=== PATIENT | female | born 1985 | race African-American/Black ===

== ENCOUNTER 2018-03-01 09:57 | Emergency (ER) | payer SELFPAY ==
[~2018-03-01] VITALS: Ht 157.5 cm; Wt 52.2 kg
[2018-03-01 10:15] VITALS: BP 116/71
[2018-03-01] MEDS ORDERED: NAPROXEN 500 MG TABLET PO STA (10:29)
[2018-03-01] MEDS ORDERED: HYDROcodone/APAP 5/325MG 1 TAB TABLET PO ONE (10:30)
[2018-03-01] MEDS ORDERED: AMOXICILLIN 250 MG CAPSULE. PO ONE (10:30)
[2018-03-01] MEDS ORDERED: TRAM-48 PO (10:40)
[2018-03-01] MEDS ORDERED: AMOX875T PO (10:40)
--- NOTE | 2018-03-01 10:40 | PHYS DOC ---
Past Medical History Past Medical History: No Pertinent History Past Surgical History: No Surgical History Alcohol Use: None Drug Use: None Adult General Chief Complaint Chief Complaint: DENTAL PROBLEM HPI HPI Patient is a 32 year old female with no significant medical history who presents today complaining of moderate left lower gum dental pain for one week and a dental abscess that began today. She states this morning she noted swelling on her left lower gum. Patient denies any fever or trismus. She states she has a dentist but she cannot be seen until the middle of next week. She states she's been trying [id number] medications including ibuprofen with minimal relief. Review of Systems Review of Systems Constitutional: Denies fever or chills [] Eyes: Denies change in visual acuity, redness, or eye pain [] HENT: Reports dental pain and abscess. Denies nasal congestion or sore throat [] Musculoskeletal: Denies back pain or joint pain [] Integument: Denies rash or skin lesions [] Neurologic: Denies headache, focal weakness or sensory changes [] All other systems were reviewed and found to be within normal limits, except as documented in this note. Current Medications Current Medications Current Medications Medications (Trade) Dose Ordered Sig/Yolanda Start Time Stop Time Status Last Admin Dose Admin Acetaminophen/ Hydrocodone Bitart (Lortab 5/325) 1 tab 1X ONCE 03/01/18 10:30 03/01/18 10:34 DC 03/01/18 10:51 1 TAB Amoxicillin (Amoxil) 500 mg 1X ONCE 03/01/18 10:30 03/01/18 10:34 DC 03/01/18 10:50 500 MG Naproxen (Naprosyn) 500 mg 1X STAT 03/01/18 10:29 03/01/18 10:34 DC 03/01/18 10:51 500 MG Allergies Allergies Allergies Coded Allergies Type Severity Reaction Last Updated Verified clindamycin Allergy Intermediate hives 01/17/15 Yes metronidazole Allergy Intermediate Rash 01/17/15 Yes Physical Exam Physical Exam Constitutional: Well developed, well nourished, no acute distress, non-toxic appearance. [] HENT: Normocephalic, atraumatic, bilateral external ears normal, oropharynx moist, no oral exudates, nose normal. Swelling noted on the left lower cheek consistent with a dental abscess. Tooth #17 through 20 are decayed and broken, gum erythema noted, no isolated abscess on the exterior gum noted. Skin: Warm, dry, no erythema, no rash. [] Back: No tenderness, no CVA tenderness. [] Extremities: No tenderness, no cyanosis, no clubbing, ROM intact, no edema. [] Neurologic: Alert and oriented X 3, normal motor function, normal sensory function, no focal deficits noted. [] Psychologic: Affect normal, judgement normal, mood normal. [] Current Patient Data Vital Signs Vital Signs Date Time Temp Pulse Resp B/P (MAP) Pulse Ox O2 Delivery O2 Flow Rate FiO2 03/01/18 10:15 99.2 87 18 116/71 (86) 97 Room Air 99.2 EKG EKG [] Radiology/Procedures Radiology/Procedures [] Course & Med Decision Making Course & Med Decision Making Pertinent Labs and Imaging studies reviewed. (See chart for details) This is a 32-year-old female patient presented to the ED today with a dental abscess. She has a dentist and will follow-up in the course of next week. Will be discharged with amoxicillin and tramadol for pain. Staff Physician Addendum: I was working in the ER during the course of this patient's visit. I was available for consultation as needed, but I was not directly involved in the care of this patient. Dragon Disclaimer Dragon Disclaimer This electronic medical record was generated, in whole or in part, using a voice recognition dictation system. Departure Departure Impression: Primary Impression: Abscess, dental Additional Impression: Dentalgia Disposition: 01 HOME, SELF-CARE Condition: STABLE Referrals: UNKNOWN PCP NAME (PCP) Follow-up with your dentist as soon as you can Patient Instructions: Dental Abscess Additional Instructions: You were evaluated in the emergency room for a dental abscess. Follow-up with your dentist as soon as you can, complete your antibiotics. Take the pain medicine as needed. Scripts Tramadol Hcl (ULTRAM) 50 Mg Tablet 50 MG PO Q6HRS PRN for PAIN, #20 TAB 0 Refills Prov: DONNIE ESPINO APRN 03/01/18 Amoxicillin (AMOXICILLIN) 875 Mg Tablet 1 TAB PO BID, #20 TAB Prov: DONNIE ESPINO BRACER 03/01/18 Problem Qualifiers DONNIE ESPINO APRN Mar 01, 2018 10:40 WILLY BORGES MD Mar 01, 2018 11:42
== END 2018-03-01 10:56 | disposition home or self-care (01) ==
LOC: ER 09:57
DX: K04.7 Periapical abscess without sinus (principal); Z88.1 Allergy status to other antibiotic agents; Z88.8 Allergy status to other drugs, medicaments and biological substances
CPT/HCPCS: 99284

== ENCOUNTER 2019-07-29 20:45 | Emergency (ER) | payer SELFPAY ==
[~2019-07-29] VITALS: Ht 157.5 cm; Wt 51.4 kg
[~2019-07-29 20:45] MED LIST: AMOX875T PO; TRAM-48 PO
[2019-07-29] MEDS ORDERED: METOCLOPRAMIDE HCL 10 MG/2 ML VIAL. IVP ONE (21:15)
[2019-07-29] MEDS ORDERED: FAMOTIDINE 20 MG/2 ML VIAL IVP ONE (21:15)
[2019-07-29 21:24] LABS: BILIRUBIN,URINE NEGATIVE (NEG); CLARITY,URINE CLEAR; COLOR,URINE YELLOW; NITRITE,URINE NEGATIVE (NEG); PH,URINE 7.5 (<5.0-8.0); PROTEIN,URINE 100 mg/dL (NEG-TRACE)
[2019-07-29 21:31] LABS: SQUAMOUS EPITHELIAL CELL,UR MOD /LPF
[2019-07-29 21:32] LABS: BACTERIA,URINE FEW /HPF (0-FEW); RBC,URINE RARE /HPF (0-2)
[2019-07-29 21:40] LABS: BASO % 0 % (0-3); EOS % 0 % (0-3); HEMATOCRIT 38.1 % (36.0-47.0); HEMOGLOBIN 12.9 g/dL (12.0-15.5); LYMPH # 1.2 x10^3/uL (1.0-4.8); LYMPH % 12 % (24-48); MEAN CORPUSCULAR HEMOGLOBIN 32 pg (25-35); MEAN CORPUSCULAR HGB CONC 34 g/dL (31-37); MEAN CORPUSCULAR VOLUME 94 fL (79-100); MONO # 0.2 x10^3/uL (0.0-1.1); MONO % 2 % (0-9); NEUT % 86 % (31-73); PLATELET COUNT 251 x10^3/uL (140-400); RED BLOOD COUNT 4.05 x10^6/uL (3.50-5.40); RED CELL DISTRIBUTION WIDTH 13.8 % (11.5-14.5); WHITE BLOOD COUNT 10.5 x10^3/uL (4.0-11.0)
[2019-07-29 21:49] LABS: CALCIUM 8.8 mg/dL (8.5-10.1); CREATININE 0.6 mg/dL (0.6-1.0); GFR 137.7
[2019-07-29 21:52] LABS: POTASSIUM 4.4 mmol/L (3.5-5.1)
[2019-07-29 21:55] LABS: ALBUMIN/GLOBULIN RATIO 0.9 (1.0-1.7); MAGNESIUM 1.9 mg/dL (1.8-2.4); TOTAL BILIRUBIN 0.6 mg/dL (0.2-1.0); TOTAL PROTEIN 8.3 g/dL (6.4-8.2)
[2019-07-29 21:59] LABS: % LYMPHS 13 % (24-48); % SEGS 87 % (35-66); PLT ESTIMATE ADEQUATE (ADEQUATE)
[2019-07-29] MEDS ORDERED: HALOPERIDOL LACTATE 5 MG/ML VIAL. IVP ONE (22:15)
[2019-07-29] MEDS ORDERED: cefTRIAXone IV Push 1 GM VIAL. IVP ONE (22:15)
[2019-07-29 23:36] VITALS: BP 118/66
--- NOTE | 2019-07-30 00:01 | PHYS DOC ---
Past Medical History Past Medical History: No Pertinent History Past Surgical History: No Surgical History Smoking Status: Current Every Day Smoker Alcohol Use: None Drug Use: None General Adult EDM: Chief Complaint: NAUSEA/VOMITING/DIARRHA HPI: HPI: 33-year-old female who denies any significant past medical history presents to the ED with complaints of nausea, nonbloody nonbilious vomiting that started around 11 AM today after she smoked marijuana. Reports long history "years" of marijuana abuse. Is also reporting dysuria. Her LMP was last month. Denies any recent binge drinking. Has no past surgical history. Review of systems: Denies associated fever, chills, cough, dyspnea, diaphoresis, sore throat, flank pain, increased urinary frequency, abdominal pain, hematuria, back pain, leg swelling, rash, and neck stiffness or headache. Review of Systems: Review of Systems: Constitutional: Denies fever or chills. [] Eyes: Denies change in visual acuity. [] HENT: Denies nasal congestion or sore throat. [] Respiratory: Denies cough or shortness of breath. [] Cardiovascular: Denies chest pain or edema. [] GI: Denies abdominal pain, nausea, vomiting, bloody stools or diarrhea. [] : Denies dysuria. [] Musculoskeletal: Denies back pain or joint pain. [] Integument: Denies rash. [] Neurologic: Denies headache, focal weakness or sensory changes. [] Endocrine: Denies polyuria or polydipsia. [] Lymphatic: Denies swollen glands. [] Psychiatric: Denies depression or anxiety. [] Heart Score: Risk Factors: Risk Factors: DM, Current or recent (<one month) smoker, HTN, HLP, family history of CAD, obesity. Risk Scores: Score 0 - 3: 2.5% MACE over next 6 weeks - Discharge Home Score 4 - 6: 20.3% MACE over next 6 weeks - Admit for Clinical Observation Score 7 - 10: 72.7% MACE over next 6 weeks - Early Invasive Strategies Current Medications: Current Medications Medications (Trade) Dose Ordered Sig/Yolanda Start Time Stop Time Status Last Admin Dose Admin Ceftriaxone Sodium (Rocephin) 1 gm 1X ONCE 07/29/19 22:15 07/29/19 22:17 DC 07/29/19 23:08 1 GM Famotidine (Pepcid Vial) 20 mg 1X ONCE 07/29/19 21:15 07/29/19 21:16 DC 07/29/19 21:36 20 MG Haloperidol Lactate (Haldol Inj) 5 mg 1X ONCE 07/29/19 22:15 07/29/19 22:17 DC 07/29/19 23:08 5 MG Metoclopramide HCl (Reglan Vial) 10 mg 1X ONCE 07/29/19 21:15 07/29/19 21:16 DC 07/29/19 21:36 10 MG Allergies: Allergies: Allergies Coded Allergies Type Severity Reaction Last Updated Verified clindamycin Allergy Intermediate hives 01/17/15 Yes metronidazole Allergy Intermediate Rash 01/17/15 Yes Physical Exam: PE: Constitutional: Well developed, well nourished, no acute distress, non-toxic appearance-calm resting ED with no active nausea or vomiting. [] HENT: Normocephalic, atraumatic, bilateral external ears normal, oropharynx moist, no oral exudates, nose normal. [] Eyes: EOMI, conjunctiva normal, no discharge. [] Neck: Normal range of motion, no tenderness, supple, no stridor. [] Cardiovascular:Heart rate regular rhythm, no murmur [] Lungs & Thorax: Bilateral breath sounds clear to auscultation [] Abdomen: Bowel sounds normal, soft, no tenderness, no masses, no pulsatile masses. [] Skin: Warm, dry, no erythema, no rash. [] Back: No tenderness, no CVA tenderness. [] Extremities: No tenderness, no cyanosis, no clubbing, ROM intact, no edema. [] Neurologic: Alert and oriented X 3, normal motor function, normal sensory function, no focal deficits noted. [] Psychologic: Affect normal, judgement normal, mood normal. [] Current Patient Data: Labs: Laboratory Tests Test 07/29/19 20:55 07/29/19 21:15 07/29/19 21:30 POC Urine HCG, Qualitative Hcg negative (Negative) Urine Collection Type Unknown Urine Color Yellow Urine Clarity Clear Urine pH 7.5 (<5.0-8.0) Urine Specific [place] >=1.030 (1.000-1.030) Urine Protein 100 mg/dL (NEG-TRACE) Urine Glucose (UA) Negative mg/dL (NEG) Urine Ketones (Stick) >=80 mg/dL (NEG) Urine Blood Negative (NEG) Urine Nitrite Negative (NEG) Urine Bilirubin Negative (NEG) Urine Urobilinogen Dipstick 1.0 mg/dL (0.2 mg/dL) Urine Leukocyte Esterase Small (NEG) Urine RBC Rare /HPF (0-2) Urine WBC 11-20 /HPF (0-4) Urine Squamous Epithelial Cells Mod /LPF Urine Bacteria Few /HPF (0-FEW) Urine Mucus Mod /LPF White Blood Count 10.5 x10^3/uL (4.0-11.0) Red Blood Count 4.05 x10^6/uL (3.50-5.40) Hemoglobin 12.9 g/dL (12.0-15.5) Hematocrit 38.1 % (36.0-47.0) Mean Corpuscular Volume 94 fL (79-100) Mean Corpuscular Hemoglobin 32 pg (25-35) Mean Corpuscular Hemoglobin Concent 34 g/dL (31-37) Red Cell Distribution Width 13.8 % (11.5-14.5) Platelet Count 251 x10^3/uL (140-400) Neutrophils (%) (Auto) 86 % (31-73) H Lymphocytes (%) (Auto) 12 % (24-48) L Monocytes (%) (Auto) 2 % (0-9) Eosinophils (%) (Auto) 0 % (0-3) Basophils (%) (Auto) 0 % (0-3) Neutrophils # (Auto) 9.0 x10^3/uL (1.8-7.7) H Lymphocytes # (Auto) 1.2 x10^3/uL (1.0-4.8) Monocytes # (Auto) 0.2 x10^3/uL (0.0-1.1) Eosinophils # (Auto) 0.0 x10^3/uL (0.0-0.7) Basophils # (Auto) 0.0 x10^3/uL (0.0-0.2) Segmented Neutrophils % 87 % (35-66) H Lymphocytes % 13 % (24-48) L Platelet Estimate Adequate (ADEQUATE) Sodium Level 139 mmol/L (136-145) Potassium Level 4.4 mmol/L (3.5-5.1) Chloride Level 103 mmol/L (98-107) Carbon Dioxide Level 23 mmol/L (21-32) Anion Gap 13 (6-14) Blood Urea Nitrogen 13 mg/dL (7-20) Creatinine 0.6 mg/dL (0.6-1.0) Estimated GFR (Cockcroft-Gault) 137.7 BUN/Creatinine Ratio 22 (6-20) H Glucose Level 120 mg/dL (70-99) H Calcium Level 8.8 mg/dL (8.5-10.1) Magnesium Level 1.9 mg/dL (1.8-2.4) Total Bilirubin 0.6 mg/dL (0.2-1.0) Aspartate Amino Transferase (AST) 43 U/L (15-37) H Alanine Aminotransferase (ALT) 42 U/L (14-59) Alkaline Phosphatase 44 U/L (46-116) L Total Protein 8.3 g/dL (6.4-8.2) H Albumin 4.0 g/dL (3.4-5.0) Albumin/Globulin Ratio 0.9 (1.0-1.7) L Lipase 67 U/L (73-393) L Laboratory Tests 07/29/19 21:30 Laboratory Tests 07/29/19 21:30 Vital Signs: Vital Signs Date Time Temp Pulse Resp B/P (MAP) Pulse Ox O2 Delivery O2 Flow Rate FiO2 07/29/19 23:36 66 19 118/66 (83) 100 Room Air 07/29/19 21:13 98.2 98.2 EKG: EKG: [] Radiology/Procedures: Radiology/Procedures: [] Impression: Concern for dysuria in the setting of UTI and ketonuria. I do suspect patient's nausea and vomiting is likely related to marijuana use that was treated with Haldol. Lipase within normal limits. Abdominal exam is soft. Patient afebrile and hemodynamically stable. Symptoms resolved after Haldol and patient requested to be discharged home. Marijuana use was discouraged. Rocephin was given in the ED and will prescribe antibiotics for UTI. Strict ED return precautions were given for severe abdominal pain or fever. Encourage PMD fol low-up in 24 to 40 hours. All patient's questions were answered and she was stable at time of discharge. Course & Med Decision Making: Course & Med Decision Making Pertinent Labs and Imaging studies reviewed. (See chart for details) [] Dragon Disclaimer: Luz Disclaimer: This electronic medical record was generated, in whole or in part, using a voice recognition dictation system. Departure Departure Impression: Primary Impression: Nausea & vomiting Additional Impressions: Tetrahydrocannabinol (THC) use disorder, mild, abuse UTI (urinary tract infection) Disposition: 01 HOME, SELF-CARE Condition: STABLE Referrals: UNKNOWN PCP NAME (PCP) Patient Instructions: Marijuana Abuse and Chemical Dependency, Nausea and Vomiting, Urinary Tract Infection Justicifation of Admission Dx: Justifications for Admission: Justification of Admission Dx: N/A TRENT LI DO Jul 30, 2019 00:00
== END 2019-07-30 00:19 | disposition home or self-care (01) ==
LOC: ER 20:45
DX: N39.0 Urinary tract infection, site not specified (principal); R11.2 Nausea with vomiting, unspecified; F12.10 Cannabis abuse, uncomplicated; F17.200 Nicotine dependence, unspecified, uncomplicated; Z88.1 Allergy status to other antibiotic agents; Z88.8 Allergy status to other drugs, medicaments and biological substances
CPT/HCPCS: 36415; 80053; 81001; 81025; 83690; 83735; 85007; 85025; 87086; 96374; 96375; 99284; J0696; J1630; J2765; J3490